=== PATIENT | male | born 1955 | race Caucasian/White ===

== ENCOUNTER → 2017-10-13 | Outpatient (CLI) | payer OTHER | LOC: BMCIMAGING 11:30 | PROVIDERS: ATTEND Podiatrist Foot & Ankle Surgery | DX: M19.071 Primary osteoarthritis, right ankle and foot (principal); M02.89 Other reactive arthropathies, multiple sites; M20.11 Hallux valgus (acquired), right foot ==

== ENCOUNTER 2017-11-18 10:22 | Day surgery (SDC) | payer OTHER ==
[2017-11-18] MEDS ORDERED: LR 1,000 ML IV ONE (10:44)
[2017-11-18] MEDS ORDERED: LIDOCAINE 1% 2 ML INJ ID PRN (10:44)
[2017-11-18 11:04] VITALS: PULSE 56
[2017-11-18] MEDS ORDERED: ceFAZolin 2 GM/SWFI 2 GM/20 ML SYR IVP ONE (11:39)
--- NOTE | 2017-11-18 11:43 | PDHPUP ---
History & Physical Update H&P update statement: This history and physical update is based on an assessment of the patient which was completed after admission or registration (within 24 hours), but prior to the surgery/procedure. H&P update: H&P reviewed & patient examined
[2017-11-18] MEDS ORDERED: BUPIVACAINE 0.5% 30 ML SDV ONE (12:29)
[2017-11-18] MEDS ORDERED: LIDOCAINE 2% 5 ML SDV ONE (12:29)
[2017-11-18] MEDS ORDERED: ceFAZolin 1 GM/5 ML SYR ONE (12:30)
[2017-11-18] MEDS ORDERED: MIDAZOLAM 2 MG/2 ML VIAL IVP ONE (12:35)
--- NOTE | 2017-11-18 12:38 | PDANEPAE ---
ANE History of Present Illness Right foot surgery ANE Past Medical History - Cardiovascular History Hx Hypertension: No Hx Arrhythmias: No Hx Chest Pain: No Hx Coronary Artery / Peripheral Vascular Disease: No Hx CHF / Valvular Disease: No Hx Palpitations: No - Pulmonary History Hx COPD: No Hx Asthma/Reactive Airway Disease: No Hx Recent Upper Respiratory Infection: No Hx Oxygen in Use at Home: No Hx Sleep Apnea: No Sleep Apnea Screening Result - Last Documented: Negative - Neurologic History Hx Cerebrovascular Accident: No Hx Seizures: No Hx Dementia: No - Endocrine History Hx Diabetes: No Hypothyroid: No Hyperthyroid: No - Renal History Hx Renal Disorders: No - Liver History Hx Hepatic Disorders: No - Neurological & Psychiatric Hx Hx Neurological and Psychiatric Disorders: No - Cancer History Hx Cancer: No - Congenital Disorder History Hx Congenital Disorders: No - GI History Hx Gastrointestinal Disorders: Yes Gastrointestinal History Comment: diverticulitis - Other Health History Other Health History: osteoarthritis to right hip. eczema on left reagan. rosascea to forehead - Chronic Pain History Chronic Pain: No - Surgical History Prior Surgeries: right knee replacement 06/2008. left shoulder rtc repair. carpal tunnel surgery to right wrist. tonsillectomy ANE Review of Systems Review of systems is: negative Review of Systems: - Exercise capacity METS (RN): 4 METS ANE Patient History - Allergies Allergies/Adverse Reactions: No Known Allergies Allergy (Verified 11/17/17 15:09) - Home Medications Home Medications: NK [No Known Home Meds] 11/17/17 [Last Taken Unknown] - NPO status NPO Since - Liquids (Date): 11/18/17 NPO Since - Liquids (Time): 08:45 NPO Since - Solids (Date): 11/17/17 NPO Since - Solids (Time): 21:00 - Anes Hx Anes Hx: no prior problems - Smoking Hx Smoking Status: Never smoked - Alcohol Use Alcohol Use: Other (Daily 2-3/d) - Family Anes Hx Family Anes Hx: none Family Hx Anesthesia Complications: none ANE Labs/Vital Signs - Vital Signs Blood Pressure: 119/74 Heart Rate: 56 Respiratory Rate: 16 O2 Sat (%): 97 Height: 182.88 cm Weight: 101.605 kg ANE Physical Exam - Airway Neck exam: FROM Mallampati Score: Class 1 Mouth exam: normal dental/mouth exam - Pulmonary Pulmonary: no respiratory distress, no rales or rhonchi - Cardiovascular Cardiovascular: regular rate and rhythym - ASA Status ASA Status: I ANE Anesthesia Plan Anesthesia Plan: MAC Total IV Anesthesia: Yes
[2017-11-18] MEDS ORDERED: PROPOFOL 200 MG/20 ML VIAL ONE ×4 (12:46→16:56)
[2017-11-18] MEDS ORDERED: PROPOFOL/EMULSION 500 MG/50 ML BOTTLE IV ONE ×3 (12:46→13:20)
[2017-11-18] MEDS ORDERED: fentaNYL 100 MCG/2 ML INJ ONE ×5 (13:00→17:37)
[2017-11-18] MEDS ORDERED: ROCURONIUM 50 MG/5 ML VIAL ONE (13:24)
[2017-11-18] MEDS ORDERED: ONDANSETRON 4 MG/2 ML VIAL ONE (13:38)
[2017-11-18] MEDS ORDERED: PHENYLEPHRINE HCL 100 MCG/ML SYR ONE (13:38)
[2017-11-18] MEDS ORDERED: GLYCOPYRROLATE 0.2 MG/1 ML VIAL ONE (13:38)
[2017-11-18] MEDS ORDERED: DEXAMETHASONE 4 MG/ML VIAL ONE (13:38)
[2017-11-18] MEDS ORDERED: ONDANSETRON DISINTEGRATING 4 MG TAB PO PRN (17:18)
[2017-11-18] MEDS ORDERED: ONDANSETRON 4 MG/2 ML VIAL IVP PRN ×2 (17:18→17:31)
[2017-11-18] MEDS ORDERED: OXYCODONE/APAP 5/325 TAB PO PRN (17:18)
--- NOTE | 2017-11-18 17:25 | POSTOPPROG ---
Post Op Note Date of Operation: 11/18/17 Surgeon: Angelina Dunlap Commissary Steward: None Anesthesiologist: Dr. 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
[2017-11-18] MEDS ORDERED: HYDROCODONE/APAP 5/325 TAB PO PRN (17:31)
[2017-11-18] MEDS ORDERED: NALOXONE HCL 0.4 MG/ML INJ IVP PRN (17:31)
[2017-11-18] MEDS ORDERED: PROMETHAZINE HCL 25 MG/ML INJ IVP PRN (17:31)
[2017-11-18] MEDS ORDERED: HYDROmorphONE/DILAUDID 1 MG/ML INJ IVP PRN (17:31)
[2017-11-18] MEDS: fentaNYL 100 MCG/2 ML INJ IVP PRN ×2 (17:40→17:50)
[2017-11-18] MEDS ORDERED: BUPIVACAINE 0.25% 30 ML SDV ONE (18:19)
--- NOTE | 2017-11-18 18:27 | GOP ---
[f rep st] OPERATIVE REPORT DATE OF OPERATION: 11/18/2017 SURGEON: Angelina Dunlap DPM ANESTHESIA: General anesthesia. ANESTHESIOLOGIST: Dr. Reaves. PREOPERATIVE DIAGNOSIS: 1. Right tarsometatarsal degenerative joint disease. 2. Right foot hallux abductovalgus deformity. 3. Right foot ganglion cyst. 4. Right foot predislocation syndrome, 2nd metatarsophalangeal joint. 5. Metatarsalgia, right 2nd metatarsophalangeal joint. 6. Right foot 2nd toe hammertoe. POSTOPERATIVE DIAGNOSIS: 1. Right tarsometatarsal degenerative joint disease. 2. Right foot hallux abductovalgus deformity. 3. Right foot ganglion cyst. 4. Right foot predislocation syndrome, 2nd metatarsophalangeal joint. 5. Metatarsalgia, right 2nd metatarsophalangeal joint. 6. Right foot 2nd toe hammertoe. PROCEDURE PERFORMED: 1. Right foot tarsometatarsal joint fusion. 2. Right foot modified Lucia bunionectomy. 3. Right foot Lapidus bunionectomy. 4. Right foot ganglion cyst excision. 5. Right foot 2nd metatarsal Faizan osteotomy. 6. Right 2nd metatarsophalangeal joint plantar plate repair. FINDINGS: ESTIMATED BLOOD LOSS: Minimal. DESCRIPTION OF PROCEDURE: Under mild sedation, the patient was brought into the operating room, [facility] on the operating table in supine position. General anesthesia was then performed. Local anesthes ia was obtained about the right foot using 5 cc of 2% lidocaine plain and 15 cc of 0.5% Marcaine plai n. The foot was then scrubbed, prepped and draped in the usual aseptic manner. A sterile pneumatic ankle tourniquet was placed about the right ankle. The foot was exsanguinated and tourniquet inflate d to 225 mmHg. Attention was then directed to the 1st metatarsophalangeal joint where an incision wa s made medial and parallel to the tendon of the extensor hallucis longus. The incision was deepened through subcutaneous tissue with care taken to identify and retract all vital neurovascular structure s. All bleeders were cauterized as necessary. An inverted L-type capsulotomy was then performed ove r the 1st metatarsophalangeal joint. The periosteum and capsule were reflected medially and laterall y to expose the 1st metatarsal head at the operative site. The medial eminence was resected utilizin g an oscillating bone saw. At this point, a lateral release was then performed, releasing the adduct or hallucis from its attachment at the base of the proximal phalanx. The lateral contraction on the hallux was noted to be reduced. At this point, the incision was then brought proximally over the 1st metatarsal cuneiform joint where the incision was deepened down to the periosteum with care taken to identify and retract all vital neurovascular structures. A periosteal incision was made and the per iosteum reflected medially and laterally. There are arthritic changes noted about the joint. The ba se of the 1st metatarsal and distal aspect of the medial cuneiform were resected with the oscillating bone saw. A lateral-based wedge was removed to help correct for the large intermetatarsal angle. T he bone ends were then prepped for fusion with fenestration of the bone. The wound was irrigated wit h copious sterile saline Ancef irrigation. Attention was then directed over the 2nd and 3rd metatarsal cuneiform joints where an incision was ma de between the joints. The incision was deepened through subcutaneous tissue with care taken to iden tify and retract all vital neurovascular structures. All bleeders were cauterized as necessary. The periosteum was reflected off the 2nd and 3rd metatarsal cuneiform joints and the joints evaluated. A dorsal osteophyte formation was removed with a rongeur. The remaining articular cartilage, which w as not much, was removed from the adjacent ends of the 2nd and 3rd metatarsal cuneiform joints. The bones were fenestrated and prepped for fusion. The wound was irrigated with copious sterile saline A ncef irrigation. At this point, the 2nd metatarsal cuneiform joint was first evaluated and temporari ly fixated with a K-wire. The [id number] Lisfranc plate was then placed over the 2nd metatarsal cunei form joint with good fixation of the joint with locking and nonlocking screws. The 3rd metatarsal cu neiform joint was fixated with a 3/5 cannulated lag screw. The wound was then irrigated with copious sterile saline Ancef irrigation. Denisa bone graft was placed about the fusion sites before fixati on and after. The incision was closed with 3-0 Vicryl, 4-0 Monocryl, and 4-0 Prolene in horizontal s uture technique. Attention was then retracted back to the 1st metatarsal cuneiform joint which was temporarily fixated , and a 4.0 lag screw placed across the fusion site. The Lapidus plate was then placed with locking and nonlocking screws with good position and fixation. The wound was irrigated, and Denisa placed a bout the fusion site. The incision was closed with 3-0 Vicryl, 4-0 Monocryl, and 4-0 Prolene in hori zontal suture technique. Attention was directed distally over the 1st metatarsophalangeal joint wher e redundant medial capsule was resected as necessary. The periosteum and capsule were repaired with 3-0 Vicryl. The subcuticular layer was repaired with 4-0 Monocryl and the skin with 4-0 Prolene in a horizontal suture technique. Attention was then directed to the 2nd metatarsophalangeal joint where incision was made lateral to t he joint. The incision was deepened through subcutaneous tissue with care taken to identify and retr act all vital neurovascular structures. All bleeders were cauterized as necessary. A periosteal inc ision was then made and capsulotomy performed over the 2nd metatarsophalangeal joint. The sagittal b one saw was used to create the Faizan osteotomy of the 2nd metatarsal. The 2nd metatarsal was pushed p roximally and temporarily fixated. The plantar plate was evaluated and found to be torn. The planta r plate was repaired with the plantar plate kit from [employer] using the 1.3 suture tape and the Scorpi on device. The drill holes were then made in the proximal phalanx, and a suture passer was used to b ring the suture distally through the proximal phalanx of the 2nd toe. At this point, the fixation in the 2nd metatarsal head was removed, and it was temporarily fixated in appropriate position and eval uated under fluoroscopy. The snap-off screws were then placed across the 2nd metatarsal osteotomy. The temporary fixation was removed. The capsule and periosteum were repaired with 3-0 Vicryl. The s ubcuticular layer was repaired with 4-0 Monocryl and the skin with 4-0 Prolene in horizontal suture t echnique. The incisions were all dressed with Xeroform, 4 x 4 gauze, Clara, ABD pads, cast padding, posterior splint, and Phong wrap was applied. The patient was then transferred to the recovery room with vital signs stable and vascular status int act. Following a period of postoperative monitoring, the patient will be discharged home. Advised t o ice and elevate his foot. He is advised to keep the dressing clean, dry, and intact. He will foll ow up with me in the next week for wound check and dressing change. He is nonweightbearing on his fo ot with the use of crutches or the Roll-A-Bout walker. INJECTABLES: 27 cc of 0.5% Marcaine plain and 5 cc of 2% lidocaine plain. MATERIALS: [employer] snap-off screws x2 in the 2nd metatarsal and the 1.3 mm suture tape in the 2nd me tatarsophalangeal joint, Lapidus 1st MPJ fusion plate and a 4-0 cannulated screw in the 1st metatarsa l cuneiform joint, Lisfranc plate over the 2nd tarsometatarsal joint, and a 3/5 screw across the 3rd tarsometatarsal joint, Denisa bone graft. HEMOSTASIS: Pneumatic ankle tourniquet at 225 mmHg for 2 hours, deflated for 15 minutes and reinflat ed for 92 minutes. /[id number]/MODL
[2017-11-18 18:46] VITALS: TEMP 98.6
[2017-11-18 19:15] VITALS: BP 139/66; RESP 25; O2SAT 98
[2017-11-18] MEDS ORDERED: ROPIVACAINE HCL 150 MG/30 ML INJ ONE (19:36)
--- NOTE | 2017-11-18 19:40 | POSTANESTH ---
Post Anesthetic Evaluation Cardiovascular Status: Normal, Stable Respiratory Status: Normal, Stable Level of Consciousness/Mental Status: Can Participate in Eval Pain Control: Adequate, Prn Tx Ordered Nausea/Vomiting Control: Adequate, Prn Tx Ordered Complications Possibly Related to Anesthesia: None Noted (ACB and POPL block done in pacu. No complications noted. Pt dced home pain 2)
== END 2017-11-18 19:55 | disposition home or self-care (01) ==
LOC: FSGY 10:22
PROVIDERS: ATTEND Podiatrist Foot & Ankle Surgery
PROC: 0SGK04Z Fusion of Right Tarsometatarsal Joint with Internal Fixation Device, Open Approach (ICD-10-PCS; principal; 2017-11-18 11:45)
PROC: 0QQN0ZZ Repair Right Metatarsal, Open Approach (ICD-10-PCS; principal; 2017-11-18 11:45)
PROC: 0QQQ0ZZ Repair Right Toe Phalanx, Open Approach (ICD-10-PCS; principal; 2017-11-18 11:45)
PROC: 0QSN0ZZ Reposition Right Metatarsal, Open Approach (ICD-10-PCS; principal; 2017-11-18 11:45)
PROC: 0LBV0ZZ Excision of Right Foot Tendon, Open Approach (ICD-10-PCS; principal; 2017-11-18 11:45)
DX: M19.071 Primary osteoarthritis, right ankle and foot (principal); M20.11 Hallux valgus (acquired), right foot; M20.41 Other hammer toe(s) (acquired), right foot; M67.471 Ganglion, right ankle and foot; M77.41 Metatarsalgia, right foot; M76.821 Posterior tibial tendinitis, right leg; M79.671 Pain in right foot; Z96.651 Presence of right artificial knee joint; Z82.49 Family history of ischemic heart disease and other diseases of the circulatory system
CPT/HCPCS: C1713; J0171; J0690; J1100; J2250; J2370; J2405; J2704; J2795; J3010

== ENCOUNTER → 2018-08-08 | Outpatient (CLI) | payer OTHER | LOC: BMCIMAGING 10:25 | PROVIDERS: ATTEND Podiatrist Foot & Ankle Surgery | DX: Z47.89 Encounter for other orthopedic aftercare (principal) ==

== ENCOUNTER → 2018-10-05 | Outpatient (CLI) | payer OTHER | LOC: BMCIMAGING 11:15 | PROVIDERS: ATTEND Podiatrist Foot & Ankle Surgery | DX: Z47.89 Encounter for other orthopedic aftercare (principal); Z98.1 Arthrodesis status ==